=== PATIENT | male | born 1980 | race Caucasian/White ===

== ENCOUNTER → 2017-01-01 | Outpatient (CLI) | payer BC | END | disposition home or self-care (01) | LOC: CFH 11:07 | PROVIDERS: ATTEND Internal Medicine | DX: M06.80 Other specified rheumatoid arthritis, unspecified site (principal); R23.8 Other skin changes; L29.0 Pruritus ani; L98.9 Disorder of the skin and subcutaneous tissue, unspecified | CPT/HCPCS: 71020 ==

== ENCOUNTER 2017-01-25 05:30 | Emergency (ER) | payer BC ==
[~2017-01-25] VITALS: Ht 188 cm; Wt 105.8 kg
[2017-01-25] MEDS ORDERED: SODIUM CHLORIDE 0.9% 1,000 ML IV ONE (05:48)
[2017-01-25] MEDS ORDERED: ACETAMINOPHEN 325 MG TABLET ONE (06:00)
[2017-01-25] MEDS ORDERED: ACETAMINOPHEN 325 MG TABLET PO ONE (06:00)
[2017-01-25] MEDS ORDERED: KETOROLAC 30 MG/1 ML ONE (06:00)
[2017-01-25] MEDS ORDERED: ONDANSETRON 2MG/ML, 2ML IVPush ONE (06:00)
[2017-01-25] MEDS ORDERED: SODIUM CHLORIDE FLUSH 10ML SYR IVF ONE (06:00)
[2017-01-25] MEDS ORDERED: SODIUM CHLORIDE 0.9% 1,000ML IVBOLUS ONE (06:00)
[2017-01-25] MEDS ORDERED: ONDANSETRON 2MG/ML, 2ML ONE (06:00)
[2017-01-25] MEDS ORDERED: KETOROLAC 30 MG/1 ML IVPush ONE (06:00)
[2017-01-25 08:22] VITALS: BP 114/72
== END 2017-01-25 08:29 | disposition home or self-care (01) ==
LOC: ED 07:41
DX: J20.9 Acute bronchitis, unspecified (principal); B34.9 Viral infection, unspecified
CPT/HCPCS: 71020; 96361; 96374; 96375; 99284; J1885; J2405; J7030

== ENCOUNTER 2021-06-17 02:07 | Inpatient (IN) | payer BC ==
[~2021-06-17] VITALS: Ht 188 cm; Wt 107.5 kg
[2021-06-17] MEDS ORDERED: SODIUM CHLORIDE 0.9% 1,000ML IVBOLUS ONE (02:30)
[2021-06-17] MEDS ORDERED: MORPHINE SULFATE 4 MG/ML, 1ML IVPush PRN (02:30)
[2021-06-17] MEDS ORDERED: SODIUM CHLORIDE FLUSH 10ML SYR IVF ONE (02:30)
[2021-06-17] MEDS ORDERED: ONDANSETRON 2MG/ML, 2ML IVPush ONE (02:30)
[2021-06-17 03:01] LABS: BASOPHILS % (AUTO) 0 % (0-1); EOSINOPHILS % (AUTO) 1 % (1-7); LYMPHOCYTES % (AUTO) 22 % (22-44); MEAN CORPUSCULAR HEMOGLOBIN 31.4 pg (27.5-34.5); MEAN CORPUSCULAR HGB CONC 34.6 g/dL (33.2-36.2); MEAN PLATELET VOLUME 8.3 fL (7.4-10.4); MONOCYTES % (AUTO) 7 % (2-9); NEUTROPHILS % (AUTO) 70 % (42-75); PLATELET COUNT 288 x10^3/uL (130-400); RED BLOOD COUNT 5.09 x10^6/uL (4.38-5.82); RED CELL DISTRIBUTION WIDTH 12.7 % (9.4-14.8)
[2021-06-17 03:12] LABS: ALANINE AMINOTRANSFERASE 49 U/L (12-78); ALBUMIN 4.3 g/dL (3.4-5.0); ANION GAP 7 mmol/L (5-15); CALCIUM 9.5 mg/dL (8.5-10.1); CHLORIDE 106 mmol/L (98-107)
[2021-06-17 03:14] LABS: ALKALINE PHOSPHATASE 54 U/L (45-117); BILIRUBIN,TOTAL 0.9 mg/dL (0.2-1.0); TOTAL PROTEIN 8.3 g/dL (6.4-8.2)
--- NOTE | 2021-06-17 04:35 | NUR ---
INITIAL PT CONTACT. PT PRESENTS TO ED C/O ABD NEAR UMBILICUS. PT STATES HE HAS A HX OF ISCHEMIC BOWEL, BOWEL OBSTRUCTION AND MULTIPLE HERNIA SURGERIES. PT SITTING UPRIGHT ON GURNEY, ACTTIVELY THROWING UP. ANXIOUS AND C/O NAUSEA. PT PLACED ON CONTINUOUS MONITORING. CALL LIGHT AND PERSONAL BELONGINGS WITHIN REACH. AWAITING CT.
[2021-06-17] MEDS ORDERED: MORPHINE SULFATE 4 MG/ML, 1ML ONE (04:40)
[2021-06-17] MEDS ORDERED: ONDANSETRON 2MG/ML, 2ML ONE (04:40)
--- NOTE | 2021-06-17 04:54 | NUR ---
PT TO CT
[2021-06-17] MEDS ORDERED: OMNIPAQUE 350 MG/ML, 150 ML BOTTLE ONE (05:06)
--- NOTE | 2021-06-17 05:23 | NUR ---
PT ROOM AIR O2 NOTED TO BE 88%, PLACED ON 2L O2 VIA NASAL CANNULA. O2 IMPROVED TO 98%. NO ADDITIONAL NEEDS
[2021-06-17 06:51] LABS: MICROSCOPIC NOT IND
--- NOTE | 2021-06-17 07:05 | NUR ---
REPORT TO JEFFERSON LESTER
[2021-06-17] MEDS ORDERED: ENOXAPARIN 40 MG/0.4 ML ONE (08:10)
[2021-06-17] MEDS: LACTATED RINGERS 1,000 ML IV SCH ×2 (08:19→17:08)
[2021-06-17] MEDS: ENOXAPARIN 40 MG/0.4 ML SQ SCH (08:19)
[2021-06-17] MEDS ORDERED: morphine SULFATE 10 MG/ML, 1ML IVPush PRN (08:30)
[2021-06-17] MEDS ORDERED: POLYETHYLENE GLYCOL 17 GM PACKET PO PRN (08:30)
[2021-06-17] MEDS ORDERED: ONDANSETRON ODT 4 MG PO PRN (08:30)
[2021-06-17] MEDS ORDERED: ACETAMINOPHEN 500 MG TABLET PO PRN (08:30)
[2021-06-17] MEDS ORDERED: ONDANSETRON 2MG/ML, 2ML IVPush PRN (08:30)
[2021-06-17] MEDS ORDERED: KETOROLAC 30 MG/1 ML IV PRN (08:30)
[2021-06-17] MEDS ORDERED: SENNA/DOCUSATE TABLET PO PRN (08:30)
--- NOTE | 2021-06-17 09:02 | NUR ---
REPORT TO TAYLER PERALES
[2021-06-17 12:49] VITALS: BP 132/81
[2021-06-17 19:23] VITALS: BP 121/80
[2021-06-18] MEDS: LACTATED RINGERS 1,000 ML IV SCH ×2 (00:32→07:43)
[2021-06-18 02:21] VITALS: BP 113/73
[2021-06-18 05:50] LABS: MEAN CORPUSCULAR HEMOGLOBIN 31.5 pg (27.5-34.5); MEAN CORPUSCULAR HGB CONC 34.5 g/dL (33.2-36.2); PLATELET COUNT 238 x10^3/uL (130-400); RED BLOOD COUNT 4.46 x10^6/uL (4.38-5.82); RED CELL DISTRIBUTION WIDTH 12.4 % (9.4-14.8)
[2021-06-18 06:01] LABS: ALBUMIN 3.2 g/dL (3.4-5.0); ANION GAP 4 mmol/L (5-15); CALCIUM 8.1 mg/dL (8.5-10.1); CHLORIDE 107 mmol/L (98-107)
[2021-06-18 06:08] LABS: ALANINE AMINOTRANSFERASE 36 U/L (12-78); ALKALINE PHOSPHATASE 42 U/L (45-117); BILIRUBIN,TOTAL 1.4 mg/dL (0.2-1.0); CREATININE 0.91 mg/dL (0.7-1.3); TOTAL PROTEIN 6.5 g/dL (6.4-8.2)
[2021-06-18 06:29] LABS: BAND#(MANUAL) 0.07 x10^3/uL; BANDS%(MANUAL) 1 % (0-7); EOS% (MANUAL) 3 % (1-7); LYMPH#(MANUAL) 3.08 x10^3/uL (1-3.4); LYMPHS% (MANUAL) 46 % (22-44); METAMYELOCYTES# (MANUAL) 0.07 x10^3/uL (0-0); METAMYELOCYTES% (MANUAL) 1 % (0-1); MONOS#(MANUAL) 0.27 x10^3/uL (0.3-2.7); MONOS% (MANUAL) 4 % (2-9); REACTIVE LYMPHS # (MANUAL) 0.34 x10^3/uL (0-0); REACTIVE LYMPHS % (MANUAL) 5 % (0-0); SEG#(MANUAL) 2.68 x10^3/uL (1.8-6.8); SEGS% (MANUAL) 40 % (42-75)
[2021-06-18 06:30] LABS: <PLATELET ESTIMATE> ADEQUATE; <PLT MORPHOLOGY> NORMAL PLT MORPH; <RBC MORPHOLOGY> NORMAL
[2021-06-18 06:31] VITALS: BP 131/86
[2021-06-18] MEDS: ENOXAPARIN 40 MG/0.4 ML SQ SCH (08:30)
[2021-06-18 13:06] VITALS: BP 125/83
[2021-06-19] MEDS ORDERED: LACTATED RINGERS 1,000 ML IV SCH (08:30)
== END 2021-06-18 17:05 | disposition home or self-care (01) | DRG 390 ==
LOC: ED 05:14 → EDIP 07:31 → 3N 09:37
PROVIDERS: ADMIT Family Medicine; ATTEND Family Medicine
DX: K56.600 Partial intestinal obstruction, unspecified as to cause (principal); K66.0 Peritoneal adhesions (postprocedural) (postinfection); Z68.30 Body mass index [BMI] 30.0-30.9, adult; K21.9 Gastro-esophageal reflux disease without esophagitis; J30.9 Allergic rhinitis, unspecified; E66.9 Obesity, unspecified
CPT/HCPCS: 36415; 74177; 80053; 81003; 83690; 85025; 96374; 96375; 99285; G0378; J1650; J2405; Q9967; J2270; J7030; J7120